=== PATIENT | male | born 1975 | race Caucasian/White ===

== ENCOUNTER 2020-06-28 09:39 | Emergency (ER) | payer OTHER ==
[~2020-06-28 09:39] MED LIST: DOXYCYCLINE HY100 MG PO; FLEXERIL 10 MG10 MG PO; IBUPROFEN600 MG PO; TESSALON PERLE100 MG PO
[2020-06-28] MEDS ORDERED: CYCLOBENZAPRINE10 MG PO (11:06)
[2020-06-28] MEDS ORDERED: NAPROSYN500 MG PO (11:06)
== END 2020-06-28 11:44 | disposition home or self-care (01) ==
LOC: ER1 09:39
DX: M51.36 Other intervertebral disc degeneration, lumbar region (principal); F17.210 Nicotine dependence, cigarettes, uncomplicated; Z88.5 Allergy status to narcotic agent
CPT/HCPCS: 72131; 99283